=== PATIENT | female | born 2000 | race Caucasian/White ===

== ENCOUNTER → 2023-06-02 10:05 | Outpatient (CLI) | payer OTHER, SELFPAY ==
[2023-06-02 11:51] LABS: Add Manual Diff / Slide Review NO; Basophils Absolute Auto 0 /uL (0-100); Basophils Percent Auto 0.5 % (0-2); Eosinophils Absolute Auto 100 /uL (0-450); Eosinophils Percent Auto 1.4 % (2-4); Hematocrit 33.3 % (36-46); Hemoglobin 11.9 g/dL (12.0-16.0); Lymphocytes Absolute Auto 1400 /uL (1100-4500); Lymphocytes Percent Auto 18.8 % (25-40); Mean Corpuscular HGB Conc 35.6 % (30-36); Mean Corpuscular Hemoglobin 33.1 PG (26-34); Mean Corpuscular Volume 93.2 fL (80-100); Monocytes Absolute Auto 400 /uL (0-900); Neutrophils Absolute Auto 5500 /uL (1500-7000); Neutrophils Percent Auto 74.3 % (50-75); Platelet Count 195 X10^3/uL (150-400); Red Blood Cell Count 3.58 X10^6/uL (4.0-5.2); Red Cell Distribution Width 12.3 % (11.6-14.8); White Blood Cell Count 7.4 X10^3/uL (4.5-11.0)
[2023-06-02 14:02] LABS: Appearance Urine UA CLEAR; Bilirubin Urine UA NEGATIVE (NEGATIVE); Color Urine UA YELLOW; Glucose Urine UA NEGATIVE (Negative); Ketones Urine UA NEGATIVE (NEGATIVE); Leukocyte Esterase Urine UA NEGATIVE (NEGATIVE); Nitrite Urine UA NEGATIVE (Negative); Occult Blood Urine UA NEGATIVE (Negative); Protein Urine UA NEGATIVE (Negative); Specific Gravity Urine UA 1.025 (1.000-1.035); Urobilinogen Urine UA 0.2 E.U./dL (0.2)
[2023-06-03 08:32] LABS: RPR Screen Non Reactive (Non Reactive)
[2023-06-03 16:18] LABS: Varicella IgG Antibody 961 index (Immune >165)
[2023-06-04 16:55] LABS: Hepatitis B Surface Antigen NEGATIVE s/c (NEGATIVE); Rubella Antibody IgG 6.7 IU/mL (>15)
[2023-06-04 17:11] LABS: HIV 1 & 2 Ab/Ag 4th Gen Combo NEGATIVE (NEGATIVE); Hep C Virus Ab w/Reflex Quant NEGATIVE s/c (NEGATIVE)
== END ==
LOC: LAB 10:06
PROVIDERS: Referring Provider Family Medicine; Visit Provider Family Medicine
DX: Z34.00 Encounter for supervision of normal first pregnancy, unspecified trimester (principal)
CPT/HCPCS: 36415; 80055; 81003; 86787; 86803; 86850; 86900; 86901; 87086; 87389

== ENCOUNTER → 2023-07-30 12:12 | Outpatient (CLI) | payer OTHER, SELFPAY ==
--- NOTE | 2023-07-30 12:13 | DI.US.S_ITS ---
PROCEDURE: US OB >= 14 WEEKS FETUS INDICATIONS: Anatomy US OUTSIDE/PRIOR DATING DATA: Last menstrual period (LMP): Unknown LMP-based estimated date of delivery (EDWIN): Unknown First dating scan (date and location): 04/30/2023 Estimated date of delivery (EDWIN) from first dating scan: 12/04/2023 The calculations are made using the working EDWIN of tendon 1824. TECHNIQUE: Real-time scanning was performed of the fetus, with image documentation and biometric measurements. Endovaginal scanning: Not performed COMPARISON: None. FINDINGS: General: A single living intrauterine gestation is present. Presentation: Transverse. Placenta: Placental position is posterior, without previa. Amniotic fluid index: 13.4 cm, normal range is 5-24 cm. Single deepest vertical pocket is 4.1 cm. heart rate: 127 beats per minute. Maternal cervical canal: Closed and measures 4 cm long. Normal lower limit is 2.5 cm. biometrics: Biparietal diameter: 5.2 cm, 21 weeks, 5 days. Head circumference: 19.1 cm, 21 weeks, 3 days. Abdominal circumference: 18.2 cm, 23 weeks, 0 day. Femur length: 3.6 cm, 21 weeks, 2 days. Clinically estimated gestational age: 21 weeks, 6 days. Composite gestational age from present scan: 21 weeks, 6 days. Estimated weight and percentile: 480 g, 60%. Anatomic survey: Neuro: Ventricles are non-dilated at less than 10 mm. Cisterna magna is normal at 3-11 mm. Cerebellum is normal in size and morphology. Nuchal skin fold: Normal at less than 6 mm between 14-21 weeks gestational age. Face: Nose and lips, facial profile are normal. Spine: No evidence for spina bifida. Heart: 4-chambered heart is present, with normal ventricular outflow tracts. Diaphragm: Diaphragm is intact. Stomach: Left-sided stomach is present. Kidneys: No hydronephrosis. Normal is less than 5 mm in 2nd trimester, less than 7 mm in 3rd trimester. Cord: 3-vessel cord has orthotopic insertion. Bladder: Normal in size. Extremities: All 4 extremities identified. IMPRESSION: 1. Single live intrauterine gestation with fetus in transverse presentation. heart rate is 127 beats per minute. Normal KEELY at 13.4 cm. 2. Estimated gestational age is 21 weeks, 6 days. Estimated weight is at 60%. 3. Normal anatomic survey. We strive to produce accurate, complete, and clear reports of imaging services. To assist us in improving patient care, this report was composed using standard report templates and voice recognition software. Therefore, it may contain abnormal punctuation, insertions and/or omissions. Occasional wrong-word or sound-alike substitutions may occur. Though we review the report and make efforts to correct it, we do recommend that the report be read carefully in proper context to recognize any text inaccuracies. Dictated by: Daniel Chang M.D. on 07/30/2023 at 15:09 Approved by: Daniel Chang M.D. on 07/30/2023 at 15:12
== END ==
LOC: US 12:12
PROVIDERS: Referring Provider Family Medicine; Visit Provider Family Medicine
DX: Z34.02 Encounter for supervision of normal first pregnancy, second trimester (principal); Z3A.21 21 weeks gestation of pregnancy
CPT/HCPCS: 76811

== ENCOUNTER → 2023-09-01 07:58 | Outpatient (CLI) | payer OTHER, SELFPAY ==
[2023-09-01 09:51] LABS: Hematocrit 31.3 % (36-46); Hemoglobin 10.9 g/dL (12.0-16.0)
[2023-09-01 10:26] LABS: GTT (PREG) 1 Hour PP 50gm Dose 93 mg/dL (76-139)
== END ==
PROVIDERS: Referring Provider Family Medicine; Visit Provider Family Medicine
DX: Z34.00 Encounter for supervision of normal first pregnancy, unspecified trimester (principal)
CPT/HCPCS: 36415; 82950; 85014; 85018

== ENCOUNTER → 2023-10-14 17:03 | Outpatient (CLI) | payer OTHER, SELFPAY ==
[2023-10-14 17:40] LABS: Add Manual Diff / Slide Review NO; Basophils Absolute Auto 0 /uL (0-100); Basophils Percent Auto 0.3 % (0-2); Eosinophils Absolute Auto 100 /uL (0-450); Eosinophils Percent Auto 1.7 % (2-4); Hematocrit 31.6 % (36-46); Hemoglobin 11.2 g/dL (12.0-16.0); Lymphocytes Absolute Auto 1400 /uL (1100-4500); Lymphocytes Percent Auto 15.3 % (25-40); Mean Corpuscular HGB Conc 35.6 % (30-36); Mean Corpuscular Hemoglobin 33.8 PG (26-34); Monocytes Absolute Auto 500 /uL (0-900); Monocytes Percent Auto 5.9 % (3-14); Neutrophils Absolute Auto 6800 /uL (1500-7000); Neutrophils Percent Auto 76.8 % (50-75); Platelet Count 138 X10^3/uL (150-400); Red Blood Cell Count 3.32 X10^6/uL (4.0-5.2); Red Cell Distribution Width 12.8 % (11.6-14.8); White Blood Cell Count 8.9 X10^3/uL (4.5-11.0)
[2023-10-14 18:03] LABS: Alanine Aminotransferase 18 IU/L (<35); Albumin 3.6 g/dL (3.5-5.0); Albumin Globulin Ratio 1.4 (1.0-2.8); Alkaline Phosphatase 78 U/L (38-126); Aspartate Aminotransferase 21 IU/L (14-36); BUN Creatinine Ratio 8.8 (6-22); Bilirubin Total 0.3 mg/dL (0.2-1.3); Blood Urea Nitrogen 5 mg/dL (7-17); Calcium 9.2 mg/dL (8.4-10.2); Carbon Dioxide 19 mmol/L (22-32); Chloride 106 mmol/L (98-107); Estimated Glomerular Filt Rate > 60 mL/min (>60); Globulin 2.6 g/dL (1.7-4.1); Glucose 110 mg/dL (70-100); HEMOLYSIS < 15 (0-50); Lactate Dehydrogenase 148 U/L (120-246); Potassium 3.3 mmol/L (3.4-5.1); Sodium 135 mmol/L (137-145); Total Protein 6.2 g/dL (6.3-8.2); Uric Acid 3.9 mg/dL (2.5-6.2)
[2023-10-15 08:10] LABS: Creatinine Urine Random 38.09 mg/dL; Protein (Total) Urine Random 19 mg/dL (0-12); Protein Creatinine Ratio Urine 0.49 GRAM/24H
== END ==
LOC: LAB 17:04
PROVIDERS: Referring Provider Family Medicine; Visit Provider Family Medicine
DX: O12.00 Gestational edema, unspecified trimester (principal); O16.3 Unspecified maternal hypertension, third trimester
CPT/HCPCS: 36415; 80053; 82570; 83615; 84156; 84550; 85025

== ENCOUNTER → 2023-10-21 15:06 | Outpatient (CLI) | payer OTHER, SELFPAY ==
--- NOTE | 2023-10-21 15:07 | DI.US.S_ITS ---
PROCEDURE: US OB LIMITED INDICATIONS: Growth US for excessive weight gain OUTSIDE/PRIOR DATING DATA: Last menstrual period (LMP): Not provided. Working EDWIN is 12/04/2023. First dating scan was 04/30/2023. TECHNIQUE: Real-time scanning was performed of the fetus, with image documentation. COMPARISON: [facility], OB >= 14 WEEKS FETUS, 07/30/2023, 12:28. FINDINGS: A single living intrauterine gestation is present. Presentation: Vertex. Placenta: Placental position is posterior, without previa. Amniotic fluid index: 17.2 cm, normal range is 5-24 cm. Single deepest vertical pocket is 7 cm. heart rate: 131 beats per minute. Maternal cervical canal: Not well seen Clinically estimated gestational age: 33 weeks and 5 days Estimated gestational age from initial scan: 33 weeks and 5 days BPD is 8.2 cm, 33 weeks Head circumference is 30 cm, 32 weeks and 6 days Abdominal circumference is 30.7 cm, 34 weeks and 4 days Femur length is 6.7 cm, 34 weeks and 2 days. IMPRESSION: Living intrauterine gestation at 33 weeks and 5 days. Vertex presentation. Normal KEELY. EFW is within normal limits. Dictated by: Jaylen Cantrell M.D. on 10/21/2023 at 16:44 Approved by: Jaylen Cantrell M.D. on 10/21/2023 at 16:47
== END ==
LOC: US 15:06
PROVIDERS: Referring Provider Family Medicine; Visit Provider Family Medicine
DX: O26.03 Excessive weight gain in pregnancy, third trimester (principal); Z3A.33 33 weeks gestation of pregnancy
CPT/HCPCS: 76815

== ENCOUNTER 2023-10-27 22:22 | Outpatient (CLI) | payer OTHER, SELFPAY ==
[2023-10-27 23:52] LABS: Appearance Urine UA CLEAR; Bilirubin Urine UA NEGATIVE (NEGATIVE); Color Urine UA YELLOW; Glucose Urine UA NEGATIVE (Negative); Ketones Urine UA NEGATIVE (NEGATIVE); Leukocyte Esterase Urine UA 1+ (NEGATIVE); Nitrite Urine UA NEGATIVE (Negative); Occult Blood Urine UA NEGATIVE (Negative); Protein Urine UA NEGATIVE (Negative); Specific Gravity Urine UA <=1.005 (1.000-1.035); Urobilinogen Urine UA 0.2 E.U./dL (0.2)
[2023-10-28 00:03] LABS: Bacteria Urine Occasional (0-1); Culture Indicated Urine Specimen Cultured; RBC Urine None Seen (0-5/HPF); Squamous Epithelial Cell Urine 0-1 /HPF (0-5/HPF); Urine Volume 10mL (spun); WBC Urine 0-1/HPF (0-5/HPF)
== END 2023-10-28 00:10 | disposition home or self-care (01) ==
LOC: OB 10-30 15:33
PROVIDERS: Referring Provider Student in an Organized Health Care Education/Training Program; Visit Provider Student in an Organized Health Care Education/Training Program
DX: O36.8130 Decreased fetal movements, third trimester, not applicable or unspecified (principal); Z3A.34 34 weeks gestation of pregnancy
CPT/HCPCS: 59025; 81003; 81015; 87086; G0378; G0379

== ENCOUNTER → 2023-11-06 10:46 | Outpatient (CLI) | payer OTHER, SELFPAY ==
[2023-11-06 12:44] LABS: BUN Creatinine Ratio 10.7 (6-22); Blood Urea Nitrogen 6 mg/dL (7-17); Calcium 8.6 mg/dL (8.4-10.2); Carbon Dioxide 23 mmol/L (22-32); Chloride 104 mmol/L (98-107); Estimated Glomerular Filt Rate > 60 mL/min (>60); Glucose 85 mg/dL (70-100); HEMOLYSIS < 15 (0-50); Potassium 3.2 mmol/L (3.4-5.1); Sodium 135 mmol/L (137-145)
[2023-11-07 08:48] LABS: Strep Grp B PCR NEG for Grp B Strep
== END ==
PROVIDERS: Referring Provider Family Medicine; Visit Provider Family Medicine
DX: E87.6 Hypokalemia (principal); Z3A.36 36 weeks gestation of pregnancy
CPT/HCPCS: 36415; 80048; 87653

== ENCOUNTER → 2023-11-12 12:58 | Outpatient (CLI) | payer OTHER, SELFPAY ==
[2023-11-12 14:52] LABS: Hematocrit 32.7 % (36-46); Hemoglobin 11.6 g/dL (12.0-16.0); Mean Corpuscular HGB Conc 35.5 % (30-36); Mean Corpuscular Hemoglobin 33.9 PG (26-34); Mean Corpuscular Volume 95.6 fL (80-100); Platelet Count 142 X10^3/uL (150-400); Red Blood Cell Count 3.42 X10^6/uL (4.0-5.2); Red Cell Distribution Width 12.9 % (11.6-14.8); White Blood Cell Count 10.8 X10^3/uL (4.5-11.0)
[2023-11-12 15:35] LABS: Alanine Aminotransferase 12 IU/L (<35); Albumin 3.5 g/dL (3.5-5.0); Albumin Globulin Ratio 1.4 (1.0-2.8); Alkaline Phosphatase 102 U/L (38-126); Aspartate Aminotransferase 18 IU/L (14-36); BUN Creatinine Ratio 18.8 (6-22); Bilirubin Total 0.5 mg/dL (0.2-1.3); Blood Urea Nitrogen 12 mg/dL (7-17); Calcium 9.5 mg/dL (8.4-10.2); Carbon Dioxide 24 mmol/L (22-32); Chloride 104 mmol/L (98-107); Estimated Glomerular Filt Rate > 60 mL/min (>60); Globulin 2.5 g/dL (1.7-4.1); Glucose 86 mg/dL (70-100); HEMOLYSIS < 15 (0-50); Potassium 3.8 mmol/L (3.4-5.1); Sodium 135 mmol/L (137-145)
[2023-11-12 16:04] LABS: Creatinine Urine Random 74.28 mg/dL; Protein (Total) Urine Random 12 mg/dL (0-12); Protein Creatinine Ratio Urine 0.16 GRAM/24H
== END ==
PROVIDERS: Referring Provider Family Medicine; Visit Provider Family Medicine
DX: O21.9 Vomiting of pregnancy, unspecified (principal); O12.00 Gestational edema, unspecified trimester
CPT/HCPCS: 36415; 80053; 82570; 84156; 85027

== ENCOUNTER 2023-11-27 16:17 | Inpatient (IN) | payer OTHER, SELFPAY ==
[2023-11-27 17:20] VITALS: BP 118/75
--- NOTE | 2023-11-27 19:18 | P.HPOB_ITS ---
OB HPI Date/Time Date of admission: 11/27/23 Date Patient Seen: 11/27/23 Time Patient Seen: 18:30 History of Present Condition Chief complaint: Labor Date of Last Menstrual Period: 02/27/23 EDWIN Calculator Estimated Delivery Date Method Current WG Current Estimate 12/04/23 LMP (Certain) 39w 0d Estimated Gestational Age (weeks): 39+4 : 1 Para: 0 Narrative: 23-year-old at [place] 39+4 weeks presenting for labor. Contractions starting last night became more intense and closer together around 9:00 a.m. this morning. Lost her mucus plug earlier today. Endorses normal movement. Denies vaginal bleeding or denies leakage of fluid. notable for anemia on iron supplementation. care: good care Dating criteria OB: LMP confirmed by 1st trimester US Ultrasounds: normal 1st trimester US and normal mid trimester US Medical complications OB: other (anemia) Preadmission Labs Last OB Lab Results: Blood Type A Positive 06/02/23 10:41 Antibody Screen Negative 06/02/23 10:41 Hct 32.7 % (36-46) L 11/12/23 13:01 Hgb 11.6 g/dL (12.0-16.0) L 11/12/23 13:01 Hep Bs Antigen Negative s/c (NEGATIVE) 06/02/23 10:41 Hepatitis C Antibody Negative s/c (NEGATIVE) 06/02/23 10:41 Rubella Antibody 6.7 IU/mL (>15) L 06/02/23 10:41 VZV IgG Antibody 961 index (Immune >165) 06/02/23 10:41 Glucose 1 Hr 50 gm 93 mg/dL (76-139) 09/01/23 09:20 Group B Strep (PCR) Neg for grp b strep 11/06/23 11:25 -: Urine: negative External Labs -: Urine: negative Evaluation Evaluation Baseline heart rate: 120 Variability: Moderate (11-25) monitor accelerations: Present Monitor Decelerations: Absent Contraction Frequency (minutes): 3 Uterine Contraction Intensity: Moderate Category of Tracing: Reactive Status: Category l Dilation (cm): 2.5 Effacement (%): 70 station: 0 Position of cervix: mid Comments: Exam by L&D RN [facility] Medical History (Updated 10/14/23 @ 16:46 by Hari Almazan MD) Abnormal Pap smear of cervix (05/27/22) Surgical History (Updated 04/17/23 @ 09:37 by Shahrzad Foss, RN) History of foot surgery Family History (Updated 04/17/23 @ 09:39 by Shahrzad Foss, RN) Mother Anemia Father Arrhythmia Aunt Bicornate uterus Ovarian cyst Abnormality present on gross pathology Grandmother Endometriosis Social History marital status: unmarried,single number of children: 0 household members: friend(s) lives independently: Yes caregiver/support person: No housing: house pets and animals: Yes (2 large dogs) education level: high school occupational status: employed current occupational exposures/hazards: No special oswaldo needs: No travel history: recent seatbelt use: always water heater temp set < 120 deg: Yes working smoke detector in home: Yes fire extinguisher in home: Yes carbon monox detector in home: Yes firearms in home: No do you feel safe at home: Yes Smoking Status: Never smoker second hand exposure: No alcohol intake: former well-balanced diet: rarely or never daily servings fruits/ve-4 caffeine: Yes (occasionally only) Type(s) of exercise: walking Meds Home Medications and Allergies Home Medications Medication Instructions Recorded Confirmed Type vitamin-ferrous sulfate 1 tab PO 04/17/23 10/29/23 History 27 mg iron-folic acid 0.8 mg tablet venlafaxine 75 mg capsule,extended 75 mg PO DAILY 04/17/23 11/27/23 History release 24 hr (Effexor XR) fluticasone propionate 50 1 spray intranasal BID PRN allergy 06/02/23 11/27/23 Rx mcg/actuation nasal symptoms #16 grams spray,suspension (Allergy Relief (fluticasone)) loratadine 10 mg tablet 10 mg PO DAILY #90 tabs 06/03/23 11/27/23 Rx famotidine 20 mg tablet 20 mg PO BID PRN reflux #60 tabs 07/30/23 11/27/23 Rx doxylamine succinate 25 mg tablet 25 mg PO BEDTIME PRN sleep #30 tabs 10/14/23 11/27/23 Rx (Sleep Aid (doxylamine)) nirmatrelvir 300 mg (150 mg See Rx Instructions PO .COMPLEX 10/22/23 11/27/23 Rx x2)-ritonavir 100 mg tablet,dose #30 ea pack (Paxlovid) Allergies Allergy/AdvReac Type Severity Reaction Status Date / Time No Known Drug Allergies Allergy Verified 11/12/23 12:01 OB Exam Narrative Exam Narrative: General: Well-nourished, no distress HEENT: NC/AT, EOMI, moist mucous membranes CV: RRR, normal S1 S2, no m/g/r Resp: CTAB Abd: Gravid, soft, NTND, +BS Ext: Full ROM, no edema Skin: No rash or lesions Neuro: A&O x3, normal tone, no focal deficits Assessment and Plan Assessment and Plan Assessment and Plan narrative: 23-year-old at [place] 39+4 weeks presenting for labor. notable for anemia on iron supplement. -admit to L&D -GBS negative, ppx not indicated -pain control prn if desired by patient -PPH risk low -VTE risk low, SCDs with epidural -anticipate vaginal delivery Time-Based Coding :: 30 minute spent with patient and on the chart (including review of chart, obtaining history, exam, reviewing outside data, placing orders, documenting exam and treatment plan, and counseling patient) on 11/27/2023.
[2023-11-27 22:22] LABS: Add Manual Diff / Slide Review NO; Basophils Absolute Auto 100 /uL (0-100); Basophils Percent Auto 0.5 % (0-2); Eosinophils Absolute Auto 100 /uL (0-450); Eosinophils Percent Auto 0.8 % (2-4); Hematocrit 33.9 % (36-46); Hemoglobin 11.9 g/dL (12.0-16.0); Lymphocytes Absolute Auto 1600 /uL (1100-4500); Lymphocytes Percent Auto 14.5 % (25-40); Mean Corpuscular HGB Conc 35.2 % (30-36); Mean Corpuscular Hemoglobin 33.1 PG (26-34); Mean Corpuscular Volume 93.8 fL (80-100); Monocytes Absolute Auto 600 /uL (0-900); Monocytes Percent Auto 5.3 % (3-14); Neutrophils Absolute Auto 9000 /uL (1500-7000); Neutrophils Percent Auto 78.9 % (50-75); Platelet Count 161 X10^3/uL (150-400); Red Blood Cell Count 3.61 X10^6/uL (4.0-5.2); Red Cell Distribution Width 13.2 % (11.6-14.8); White Blood Cell Count 11.3 X10^3/uL (4.5-11.0)
[2023-11-27] MEDS: ACETAMINOPHEN 325 MG TABLET 650 MG PO (22:53)
[2023-11-27] MEDS: LACTATED RINGERS 1,000 ML 100 ML IV (23:33)
--- NOTE | 2023-11-28 00:17 | PM.AN.REGBLK ---
Regional Block Pre-procedure PMH/ROS narrative: active labor PSH/Anesthesia history narrative: surggery at 13 y/o no rxn ASA Class: II Labs: Hct 33.9 % (36-46) L 11/27/23 22:05 Plt Count 161 X10^3/uL (150-400) 11/27/23 22:05 Medications: Current Medications Generic Name Dose Route Start Last Admin Trade Name Freq PRN Reason Stop Dose Admin Carboprost Tromethamine 250 mcg 11/27/23 17:16 Carboprost 250 Mcg/Ml Ampul IM Q90M PRN Bleeding Diphenhydramine HCl 25 mg 11/28/23 00:15 Diphenhydramine 50 Mg/Ml Vial IV Q10M PRN Pruritis Ephedrine Sulfate 10 mg 11/28/23 00:15 Ephedrine 50 Mg/Ml Vial IV Q5M PRN Blood pressure decrease more than 20% of baseline. Oxytocin/Lactated Ringer's 30 unit in 500 mls @ 200 mls/hr 11/27/23 17:16 Oxytocin Premix IV CONT PRN Bleeding Protocol Tranexamic Acid 1,000 mg/ 100 mls @ 600 mls/hr 11/27/23 17:16 Sodium Chloride IV NOW PRN Bleeding Lactated Ringer's 1,000 mls @ 100 mls/hr 11/27/23 17:30 11/27/23 23:33 Lactated Ringers IV 11/28/23 03:29 100 mls/hr CONT SONI Administration FENT 2MCG/ML BUPIV 0.125% EPI 200 mcg in 100 mls @ 10 mls/hr 11/28/23 00:15 Fentanyl/Bupiv/Ns 2mcg/Ml - 0.125% EPIDURAL CONT SONI Lidocaine HCl 20 ml 11/27/23 17:16 Lidocaine 1% 20 Ml INJ INTRA-OP PRN Post Delivery Methylergonovine Maleate 0.2 mg 11/27/23 17:16 Methylergonovine 0.2 Mg Tablet PO Q6HR PRN Heavy Bleeding Methylergonovine Maleate 0.2 mg 11/27/23 17:16 Methylergonovine 0.2 Mg/Ml Vial IM NOW PRN Bleeding Mineral Oil 30 ml 11/27/23 17:16 Mineral Oil 30 Ml Udc TOP PRN PRN Version Misoprostol 800 mcg 11/27/23 17:16 Misoprostol 200 Mcg Tablet SD NOW PRN Bleeding Misoprostol 400 mcg 11/27/23 17:16 Misoprostol 200 Mcg Tablet SL NOW PRN Bleeding Nalbuphine HCl 2.5 mg 11/28/23 00:15 Nalbuphine 20 Mg/Ml Ampul IV Q10M PRN Pruritis Naloxone HCl 0.2 mg 11/27/23 17:16 Naloxone 0.4 Mg/Ml Vial IV Q2MIN PRN Opiate Reversal Oxytocin 10 unit 11/27/23 17:16 Oxytocin 10 Unit/Ml Vial IM NOW PRN Bleeding Allergies: Allergies Allergy/AdvReac Type Severity Reaction Status Date / Time No Known Drug Allergies Allergy Verified 11/27/23 23:20 Procedure Insertion date: 11/27/23 Insertion time: 23:53 Prep/Local: betadine x3 (chloraprep) Interspace: l3 l4 Patient position: sitting Needle: 17 gauge Tuohy Loss of resistance with: saline OMER at (cm): 6 Catheter placed at SKIN (cm): 15 Insertion: No CSF, No Blood, No Paresthesia with insertion, No Paresthesia with injection and No Test dose reaction Initial Medications TEST DOSE time: 23:53 BOLUS DOSE time: 00:00 BOLUS DOSE (mL): 6 BOLUS DOSE med: 0.125% bupivacaine with fentanyl 10 mcg/mL Infusion INFUSION: 0.0625% bupivacaine and with fentanyl 2 mcg/mL Initial rate (mL/hr): 10 Post-procedure Anesthesia date START: 11/27/23 Anesthesia time START: 23:33
[2023-11-28] MEDS: LACTATED RINGERS 1,000 ML 100 ML IV (04:49)
[2023-11-28] MEDS: FENT 2MCG/ML BUPIV 0.125% EPI 200 MCG/100 ML PLAST..BAG 10 MCG EPIDURAL (07:24)
[2023-11-28] MEDS: OXYTOCIN PREMIX 30 UNIT/500 ML PLAST..BAG 200 UNIT IV (09:15)
--- NOTE | 2023-11-28 09:20 | P.PNOB_ITS ---
Date/Time Date Patient Seen: 11/28/23 Time Patient Seen: 09:20 Pain Control Pain control: epidural Comments: Epidural losing effectiveness, just seen by RESIDENTIAL BUILDING INSPECTOR for new bolus. Progressing well otherwise, SROM 30 min ago with light mec. Complete dilation and ready to practice push. Pelvic Exam Dilation (cm): 10 Effacement (%): 100 station: +1 Amniotic membrane status: Ruptured Comments: Exam by L&D RN Contractions Contractions on admission: regular Monitor mode: External Pitocin rate (mU/min): 1 Contraction frequency (min): 3 Contraction duration (min): 1 Contraction pattern: Regular Contraction intensity: Moderate Status status: Category ll Heart Rate Baseline: 125 Monitor Accelerations: Present Monitor Decelerations: Variable Monitor Variability: Moderate Assessment and Plan Assessment: active labor Plan: continuous present management Comments: 23yo G1 at GA 39+5 weeks in active labor. #MWB: Previously comfortable with epidural, now it significant pain. Rebolused by RESIDENTIAL BUILDING INSPECTOR. #FWB: Cat 2 strip with accels and mild variables during contractions, good recovery and overall variability. SROM at 0840 w/light mec. #Labor: Complete and ready to start practice pushing once more comfortable with epidural. Start low dose pitocin for contraction augmentation. Anticipate vaginal delivery.
--- NOTE | 2023-11-28 11:10 | P.PCNOB_ITS ---
Labor & Delivery Delivery date: 11/28/23 Intrapartal Events: None Delivery augmentation: pitocin Delivery monitor: external FHT Route of delivery: L&D Laceration Description: Vaginal - 1st Degree Delivery repair: vicryl Estimated blood loss (mL): 650 Anesthesia Type: Epidural Narrative: Patient fully dilated at 0840 and began pushing at 0904. Spontaneous vaginal delivery of a viable female in the JESSE position occurred at 1034. The was suctioned and stimulated at the perineum, and gave appropriate cry with movement of all extremities. Delayed cord clamping was observed for 60 seconds. The cord was clamped and cut, and the handed to mother for skin to skin. Cord blood and segment were obtained. The placenta was delivered without difficulty using gentle cord traction and found to be intact with a 3- vessel cord. After fundal massage the uterus was firm and bleeding stopped. The vagina and cervix were examined for lacerations. A first degree vaginal laceration was noted and repaired with 3-0 Vicryl suture in the usual fashion. Patient stable with rooming in, bonding skin to skin and attempting to breastfeed. [place] Baby 1: Infant gender: Female Presentation: vertex Position: Right Occiput Anterior Placenta delivery description: Spontaneous Cord Vessel Description: 3 Vessels score (1 min): 8 score (5 min): 9 weight: 8 lb 1.314 oz Plan for aftercare: Routine care
[2023-11-28] MEDS: DERMOPLAST SPRAY 20% 60 ML 1 SPRAY TOP (14:16)
[2023-11-28] MEDS: WITCH HAZEL/GLYCERIN PADS 1 EACH TOP (14:16)
[2023-11-28 14:17] VITALS: TEMP 37.2
[2023-11-28] MEDS: LANOLIN OINT 7 GM 1 APPLIC TOP (14:17)
[2023-11-28] MEDS: IBUPROFEN 600 MG TABLET PO (14:17)
[2023-11-29 06:31] LABS: Hematocrit 26.1 % (36-46); Hemoglobin 9.1 g/dL (12.0-16.0)
[2023-11-29] MEDS: PRENATAL VIT,CALC/IRON/FOLIC 1 TABLET 1 TAB PO (12:52)
[2023-11-29] MEDS: DOCUSATE 100 MG CAPSULE PO (12:53)
--- NOTE | 2023-11-29 12:53 | PM.OBDS.1 ---
Discharge Providers Provider Date of admission: 11/27/23 16:17 Discharge Date: 11/29/23 Primary care physician: Chris CARDENAS Provider Consults: 11/27/23 17:16 Consult to Anesthesiology Urgent Comment: Consulting Provider: Hari Almazan Reason for consultation: Epidural 11/29/23 11:03 Consult to Central Office Installer Routine Comment: Discharge provider: Hari Almazan MD Summary Hospital Course Date Patient Seen: 11/29/23 Time Patient Seen: 10:15 Diagnoses: # # mother #Anemia Hospital Course: Admitted for normal labor on 11/27/2023. Progressed adequately without augmentation to complete dilation over the course of 16 hours. She had an uncomplicated of a live female with a first degree vaginal laceration that was repaired. Her course was acute blood loss anemia, for which she was started on oral iron supplementation. At discharge patient is ambulating well, tolerating normal diet, breast-feeding without difficulty, and pain is adequately controlled. She reports bleeding is similar to normal menses. Peripartum Data Delivery Method: Natural Vaginal Laceration Description: Vaginal - 1st Degree [place] 1: Gender: Female Disposition of : home Discharge Diagnosis (1) (spontaneous vaginal delivery): Status: Acute (2) Mother currently breast-feeding: Status: Acute (3) Acute blood loss anemia: Status: Acute (4) Anemia affecting : Status: Acute Status at Discharge Cognitive/behavioral status at discharge: oriented Functional status at discharge: independent ambulation Overall status at discharge: patient is progressing back to baseline Time Spent with Patient Time attestation: Total time spent providing and/or coordinating discharge services: 30 minutes Objective Labs 11/29/23 06:10 Labs: Laboratory Results - last 24 hr 11/29/23 06:10 Hgb 9.1 L Hct 26.1 L Exam Narrative Exam Narrative: General: Well-appearing, well-nourished, no distress HEENT: Moist mucous membranes, no pallor CV: Regular rate and rhythm, no murmur auscultated Resp: CTAB, comfortable work of breathing Abdomen: Soft, bowel sounds present, fundus firm below umbilicus with appropriate tenderness Extremities: No edema, no calf tenderness or evidence of DVT Discharge Plan Discharge Plan Patient Disposition: Home Discharge orders & Medications Prescriptions: New acetaminophen 325 mg Tablet 650 mg PO Q6HR PRN (Reason: Pain, Mild (1-3)) Qty: 90 1RF Dermoplast (with menthol) 20-0.5 % Aerosol 1 spray topical Q1HR PRN (Reason: perineal pain) Qty: 78 1RF ibuprofen 600 mg Tablet 600 mg PO Q6HR PRN (Reason: Pain, Mild (1-3)) Qty: 90 0RF Purelan Cream 1 applic topical PRN PRN (Reason: Tenderness) Qty: 7 5RF polyethylene glycol 3350 17 gram/dose powder 17 g PO DAILY Qty: 510 2RF ferrous sulfate 325 mg (65 mg iron) tablet 325 mg PO Q OTHER DAY Qty: 60 0RF Continued fluticasone propionate [Allergy Relief (fluticasone)] 50 mcg/actuation spray,suspension 1 spray intranasal BID PRN (Reason: allergy symptoms) Qty: 16 2RF Rx Instructions: administer into each nostril Sleep Aid (doxylamine) 25 mg tablet 25 mg PO BEDTIME PRN (Reason: sleep) Qty: 30 2RF famotidine 20 mg tablet 20 mg PO BID PRN (Reason: reflux) Qty: 60 2RF loratadine 10 mg tablet 10 mg PO DAILY Qty: 90 0RF vit-ferrous sulfat-FA 27 mg iron- 0.8 mg tablet 1 tab PO venlafaxine [Effexor XR] 75 mg capsule,extended release 24hr 75 mg PO DAILY Rx Instructions: weaning off, last dose planned 04/22/23 Discontinued Paxlovid 300 mg (150 mg x 2)-100 mg tablets,dose pack See Rx Instructions PO .COMPLEX Qty: 30 0RF Rx Instructions: take TWO 150 mg tablets of nirmatrelvir with ONE 100 mg tablet of ritonavir twice daily for 5 days PO Follow up/Referrals: ProviderChris [Primary Care Provider] - Diet/Activity/Treatments Diet: Regular Visit Report/Discharge Packet Stand Alone Forms: Patient Portal/API, Stroke Signs & Symptoms Discharge Data Primary Care Provider: Chris Herrera
[2023-11-29 13:24] VITALS: BP 116/74; PULSE 105; RESP 18; TEMP 36.8
[2023-11-29] MEDS: MEASLES,MUMPS,RUBELLA VACC/PF 0.5 ML VIAL SUBCUT (15:27)
== END 2023-11-29 15:45 | disposition home or self-care (01) | DRG 806 ==
PROVIDERS: Admitting Provider Family Medicine; Referring Provider Family Medicine; Visit Provider Family Medicine
DX: O76 Abnormality in fetal heart rate and rhythm complicating labor and delivery (principal); D62 Acute posthemorrhagic anemia; O99.03 Anemia complicating the puerperium; Z37.0 Single live birth; O70.0 First degree perineal laceration during delivery; Z3A.39 39 weeks gestation of pregnancy
CPT/HCPCS: 36415; 59050; 59400; 85014; 85018; 85025; 86850; 86900; 86901; G0379; J2590